=== PATIENT | female | born 1965 | race African-American/Black ===

== ENCOUNTER → 2017-12-27 | Outpatient (CLI) | payer OTHER ==
[~2017-12-27] VITALS: Ht 160 cm; Wt 79.4 kg
[~2017-12-27] MED LIST: ACETAMINOPHEN650 M5 OR; BACLOFEN 10MG T10 MG PO; CALCIUM 500 +1 EAC5 PO; COLACE100 MG OR; COPAXONE20 M1 SQ; CRANBERRY200 MG PO; DOCUSATE SODIU100 MG PO; FAMOTIDINE20 MG OR; GILENYA0.5 MG PO; IRON325 PO; LORTAB 5 MG/5001 TA1 OR; LORTAB 5 MG/5001 TA1 PO; MAGOX 400400 MG PO; METHYLIN 10 MG10 MG PO; METHYLPHENIDATE10 M7 PO; MOBIC15 MG PO; NEURONTIN 300300 M1 PO; NEURONTIN600 MG PO; NORCO 7.5-3251 EACH PO; NORVASC5 MG PO; OXYBUTYNIN 5 MG5 M1 PO; PREDNISONE 10 M10 MG PO; PREDNISONE 20 M20 M1 PO; PREDNISONE 5 MG5 M1 PO; SENNA OR; VITAMIN B-12500 MCG PO; VITAMIN D1000 UNI1 OR; VITAMIN D31000 UNIT PO; ZINC30 M1 PO
--- NOTE | ~2017-12-27 | P ---
[facility] [place] [address] PROCEDURE REPORT Name: TONEYCHERRI Room #: REG [facility] Cesar#: [id number] Admission: 12/27/17 Attend Phys: Hubert Bethea Discharge: Date of : 67 Report #: [id number] THIS REPORT FOR: //name// CC: Hubert Smith MD DATE OF SERVICE: 12/27/2017 PROCEDURE PERFORMED: Colonoscopy with biopsies. HISTORY OF PRESENT ILLNESS: The patient is a 52-year-old female with a recent Cologuard test that was positive. She denies any symptoms. She denies any blood in her stools. No previous history of colonoscopy, no family history of colon cancer. DESCRIPTION OF PROCEDURE: The risks and benefits of the procedure were explained to the patient, those risks including but not limited to bleeding, perforation, the risk of sedation. She understood these risks and gave informed consent. Sedation was given using propofol per anesthesia. Next, a digital rectal exam was initially performed, which was normal. Next, using a standard Olympus colonoscope, the scope was placed in the patient's anus and advanced under direct vision to the cecum. The overall prep was good. The cecum and ileocecal valve were normal in appearance. Terminal ileum was intubated and normal. In the proximal ascending colon, 2 small areas of colitis were noted. These were only approximately 5 mm in size. Biopsies were obtained. No evidence of bleeding, otherwise normal ascending colon. The transverse, descending and sigmoid colon were normal. The rectal mucosa was normal. On retroflexion, small nonbleeding internal hemorrhoids were noted. The scope was then withdrawn and the procedure terminated. The patient tolerated the procedure well. IMPRESSION: 1. Two small areas of inflammation/colitis in the ascending colon. Biopsies obtained. This may be secondary to NSAIDs or other etiologies. 2. Small internal hemorrhoids. 3. Otherwise, normal colonoscopy. RECOMMENDATIONS: Await biopsy results. [address] [address] PROCEDURE REPORT Name: ZIEGLERCHERRI DENNISON Room #: REG Mary Guerrero#: [id number] Admission: 12/27/17 Attend Phys: Hubert Bethea Discharge: Date of : 67 Report #: [id number] Thank you for allowing me to participate in her care. <ELECTRONICALLY SIGNED> By: Hubert Valentine MD 01/01/18 0903 1028 1819 Hubert Valentine MD /nt
--- NOTE | ~2017-12-27 | PATH ---
[facility] [address] [place] [address] PATHOLOGY RPT PROCEDURE Name: ANASTASIA MARCHLINDA Jauregui Room #: REG [facility] Celi.#: [id number] Admission: 12/27/17 Date of : 67 Discharge: Report #: [id number] Path Case #: [id number] [facility] Accession Number: [id number] . 01 Material submitted: . BX OF COLITIS, ASCENDING COLON . 01 Clinician provided ICD-10: Z12.11 . 01 Clinical history: . Screening, colitis . 02 Diagnosis: Large intestinal mucosa, colitis ascending colon, endoscopic biopsy: - Mild active colitis. - Negative for dysplasia or malignancy. [facility]/12/28/2017 . 02 Comment: Sections of the colonic mucosa designated "colitis-ascending colon" show focal cryptitis, and a moderately cellular lamina propria composed predominantly of lymphocytes and plasma cells and occasional eosinophils. Surface ulceration is not identified. There are no crypt abscesses, granulomas or viral inclusions. The process affects all the fragments with a similar intensity. Given the description, the differential diagnosis includes acute colitis of self-limited etiology, infectious-type of etiology, early inflammatory bowel disease, acute diverticulitis, as well as medication induced colitis. Please correlate with clinical as well as endoscopic findings. (IUV:pit 12/28/2017) . 02 Electronically signed: . Oksana Livingston MD, Pathologist NPI- [id number] . 01 Gross description: . The specimen is received in formalin, labeled "MarchCherri, BX of colitis-ascending colon", are several irregular fragments of melgar soft tissues measuring 0.7 x 0.3 x 0.1 cm in aggregate, entirely submitted in A1. (SWS; 12/27/2017) [facility] . 02 Pathologist provided ICD-10: K52.9 . [address] [address] PATHOLOGY RPT PROCEDURE Name: CHERRI MARCH Room #: REG CLI Tiara#: [id number] Admission: 12/27/17 Date of : 67 Discharge: Report #: [id number] Path Case #: [id number] [facility] . [id number] Specimen Comment: A courtesy copy of this report has been sent to Specimen Comment: [phone], . Specimen Comment: Report sent to / DR BOYER Performed at: [id number] [facility] [address], [place], [place] [id number] MD Cheo Junior MD Phone: [phone] Performed at: [address] [id number] MD Oksana Livingston MD Phone: [phone]
== END | disposition home or self-care (01) ==
LOC: GI 08:52
DX: K52.9 Noninfective gastroenteritis and colitis, unspecified (principal); K64.8 Other hemorrhoids; I10 Essential (primary) hypertension; G35 Multiple sclerosis; Z98.890 Other specified postprocedural states; Z79.899 Other long term (current) drug therapy; Z79.891 Long term (current) use of opiate analgesic
CPT/HCPCS: 62110; 62900

== ENCOUNTER 2018-09-22 15:00 | Inpatient (IN) | payer OTHER ==
[~2018-09-22] VITALS: Ht 152.4 cm; Wt 67.6 kg
--- NOTE | ~2018-09-22 | H ---
[facility] [place] [address] HISTORY AND PHYSICAL Name: CHERRI ZIEGLER Room #: 170-8 ADM IN M.R.#: [id number] Admission: 09/22/18 ������������������ Attend Phys: Cornelio Cardona MD Discharge: ������������������ Date of : 67 Report #: [id number] THIS REPORT FOR: //name// CC: Cornelio Smith DATE OF SERVICE: 09/22/2018 REASON FOR PRESENTATION: Bilateral lower extremity weakness. HISTORY OF PRESENT ILLNESS: A 53-year-old with past medical history of multiple sclerosis diagnosed way back in 1989. This was after she had some falls and an MRI confirmed the presence of a demyelinating process. The patient has been going to a neurologist. Her disease was described as waxing and waning with some flares up. Currently, she is maintained on Gilenya 0.5 mg every other day. She visits with her urologist every 6 months. Ever since August, the patient has not been able to do her usual activities. She usually utilizes a walker, but she has not been able to do so because of weakness in both lower extremities. She denies any fever or chills. She has some urinary incontinence, but her urinary habits have not changed. She does not have any bowel issues; however, she utilizes laxatives and stool softeners because of constipation. She denies any numbness in any part of her body. Because of the worsening of her symptoms and couple of falls, she decided to present for further evaluation and management as her is not able to provide her with the care she needs. PAST MEDICAL HISTORY: 1. Multiple sclerosis. 2. Hypertension. 3. Some psychiatric issues in the past including an adjustment disorder, cognitive disorders, attention deficit per a previous note back in 2010. 4. Hyperlipidemia. SOCIAL HISTORY: She lives with her . No drug or alcohol abuse. She used to work for a [employer] company before her disability with multiple sclerosis. ALLERGIES: None. FAMILY HISTORY: Her mom has hypertension and preeclampsia, otherwise negative. REVIEW OF SYSTEMS: GENERAL: No fever or chills. CARDIOVASCULAR: No chest pain or palpitation. PULMONARY: No cough or hemoptysis. GASTROINTESTINAL: No nausea or vomiting. [facility] [address] [place] [address] HISTORY AND PHYSICAL Name: CHERRI ZIEGLER Room #: 170-8 ADM IN ..#: [id number] Admission: 09/22/18 ������������������ Attend Phys: Cornelio Cardona MD Discharge: ������������������ Date of : 67 Report #: [id number] GENITOURINARY: Occasional incontinence, but no dysuria. NEUROLOGICAL: As per the history of present illness. SKIN: Seborrheic rash on her face. MEDICATIONS: 1. Docusate. 2. Baclofen. 3. Meloxicam. 4. Cranberry. 5. Vitamin D3. 6. Gabapentin. 7. Gilenya. 6. Amlodipine. 7. Oxybutynin. 8. Zinc. PHYSICAL EXAMINATION: VITAL SIGNS: Blood pressure is 134/86, temperature is 36.8, pulse rate is 84, respiratory rate is 17. GENERAL: No acute distress. HEAD AND NECK: There is seborrheic rash all over her face. LUNGS: Clear to auscultation bilaterally with no wheezing or rhonchi. CARDIOVASCULAR: Regular with no rub detected. No murmurs. ABDOMEN: Soft, nontender with no hepatosplenomegaly, no guarding, no rigidity. EXTREMITIES: Lower extremities +1 edema. No clubbing or cyanosis. NEUROLOGIC: She is alert, oriented. No gross cranial nerve deficit. There is 3/5 power in both lower extremities. This is her baseline per the family. LABORATORY DATA: Laboratory values reviewed. Hemoglobin is 9.5. Chemistry showed a sodium of 141, potassium of 4, chloride of 106. Mildly elevated AST at 63. CPK was mildly elevated at 490. C-reactive protein is elevated at 14.2. ASSESSMENT, IMPRESSION, AND PLAN: 1. Multiple sclerosis with an acute decompensation and flareup. 2. Apparent urinary tract infection. 3. Hypertension. 4. Admission. 5. Urine culture obtained. 6. It is likely that her acute decompensation is due to urinary tract infection. We will resume her usual multiple sclerosis related medications. 7. Ask Neurology to evaluate. 8. Will need Physical therapy and occupational therapy. [address] [address] HISTORY AND PHYSICAL Name: CHERRI ZIEGLER Room #: 170-8 ADM IN M.R.#: [id number] Admission: 09/22/18 ������������������ Attend Phys: Cornelio Cardona MD Discharge: ������������������ Date of : 67 Report #: [id number]. The patient is in need for home assistance and this will need to be arranged with our social sciences chair. ��������������������������������������������� ���������������������������������������� By: ��������������������������������������������� 1738 1810 Cornelio Cardona MD /nt
--- NOTE | ~2018-09-22 | HC ---
[facility] [place] [address] CONSULTATION Name: TONEYCHERRI Juventino Room #: 460-P ADM IN M.R.#: [id number] Admission: 09/22/18 ������������������ Attend Phys: Cornelio Cardona MD Discharge: ������������������ Date of : 67 Report #: [id number] THIS REPORT FOR: //name// CC: Cornelio Smith DATE OF SERVICE: 09/25/2018 HISTORY OF PRESENT ILLNESS: The patient is a 53-year-old -Mosotho female with a history of multiple sclerosis since , premorbid quad cane ambulator, occasional walker usage, admitted with worsening bilateral lower extremity weakness, increasing falls. is unable to provide the care she needs at this time. She was thought to have either an acute exacerbation or likely urinary tract infection. MRI did not show any active lesions and she was thought to have probable causation by the urinary tract infection. She has an indwelling Hutchinson catheter and has been on Rocephin pending cultures. MRI did show extensive MS in her brain, although no acute lesions and the steroids have been held off by Neurology at this time. PAST MEDICAL HISTORY: Her prior medical history includes the history of multiple sclerosis. She has a prior history of urinary urgency. There is note to some psychiatric issues in the past including an adjustment disorder, cognitive disorder, attention deficit and hyperlipidemia is noted. MEDICATIONS: Please see the full medication listing. This includes vitamins, herbals, and supplements. ALLERGIES: No known drug allergies. FAMILY HISTORY: Noncontributory. SOCIAL HISTORY: Lives with her as noted above. Their house is ramped. No steps. 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 The patient's mother lives 5 minutes away and is closely involved. No history of drug or alcohol abuse. She used to work for a [employer] company before her disability. REVIEW OF SYSTEMS: No current complaints of chest pain, shortness of breath or abdominal discomfort. PHYSICAL EXAMINATION: GENERAL: A 53-year-old slender -Mosotho female, in no obvious distress. She is alert, pleasant. VITAL SIGNS: Last recorded temperature is a 100, pulse 100, respirations 18, blood pressure 144/93. HEENT: Appeared to be benign. EOMs some lateral nystagmus. Facies appeared symmetric. NEUROLOGIC: She is able to discuss her history, although was a bit tangential. [facility] [address] [place] [address] CONSULTATION Name: CEHRRI ZIEGLER Room #: 460-P [facility] IN M.R.#: [id number] Admission: 09/22/18 ������������������ Attend Phys: Cornelio Cardona MD Discharge: ������������������ Date of : 67 Report #: [id number] Upper extremities reveal decreased coordination, especially deddso-[id number]-viak, little worse in the left. Strength is probably a grade 4-/5. EXTREMITIES: Lower extremities: She has better movement of that right lower extremity with strength probably grade 4-, left lower extremity strength is only a grade 3. She does have decreased coordination. Tone revealed DTRs basically 0 at the knees and there is no clonus at the ankles. Functionally, she has been mod assist with sit to stand. Gait was 25 feet mod assist with a front-wheeled walker with definite balance concerns. She does have some ataxia. ASSESSMENT: A 53-year-old -Mosoth[place] female following problem list: 1. Extensive multiple sclerosis with bilateral lower extremity weakness, gait instability and ataxia. 2. Increased falls with increased lower extremity weakness. 3. Urinary tract infection and has been receiving Rocephin. 4. Hypertension. 5. Functional mobility and ADL deficits. PLAN: I agree patient would benefit from inpatient rehabilitation to maximize her functional independence, so she can return back to the home setting with her and mother are involved. Insurance precertification issues to be checked regarding an acute inpatient rehabilitation stay. ��������������������������������������������� ���������������������������������������� By: ��������������������������������������������� 1036 1811 Tylor Vergara MD /nt
[2018-09-22 15:00] VITALS: BP 134/86
[2018-09-22 15:50] LABS: BASOPHILS 0.2 % (0.0-2.0); EOSINOPHILS 0.6 % (0.0-3.0); HEMATOCRIT 30.2 % (37.0-47.0); HEMOGLOBIN 9.5 gm/dL (12.0-15.0); LYMPHOCYTES 2.2 % (24.0-44.0); MCH 27.3 pg (26.0-34.0); MCHC 31.4 g/dL (28.0-37.0); MCV 86.9 fL (80.0-100.0); MONOCYTES 8.3 % (1.0-8.0); PLATELET COUNT 333 thou/uL (150-400); POLYS 88.7 % (36.0-66.0); RBC 3.47 mil/uL (4.20-5.00); RDW 19.2 % (10.5-14.5); WBC 7.9 thou/uL (4.0-11.0)
[2018-09-22 15:56] LABS: URINE BLOOD NEGATIVE (Negative); URINE CLARITY CLEAR; URINE COLOR YELLOW; URINE GLUCOSE-RANDOM* NEGATIVE (Negative); URINE KETONES 3+ (Negative); URINE LEUKOCYTES 2+ (Negative); URINE NITRITE NEGATIVE (Negative); URINE PROTEIN (DIPSTICK) 1+ (Negative)
[2018-09-22 15:58] LABS: ICTOTEST (BILI CONFIRMATORY) Negative (Negative); URINE BILIRUBIN NEGATIVE (Negative)
[2018-09-22 15:58] LABS: ANION GAP 14 mmol/L (7-16); BUN 8 mg/dL (7-18); CALCIUM 9.6 mg/dL (8.5-10.1); CHLORIDE 106 mmol/L (98-107); CO2 21 mmol/L (21-32); CREATININE 0.8 mg/dL (0.6-1.0); GLUCOSE 100 mg/dL (74-106); SODIUM 141 mmol/L (136-145)
[2018-09-22 16:05] LABS: CASTS None Seen /LPF (None Seen); SQUAMOUS 4-10 Moderate /LPF (0-3); URINE RBC 0-2 Rare /HPF (0-2)
[2018-09-22 16:06] LABS: AMORPHOUS PHOSPHATES Many /LPF (None Seen); WBC CLUMPS Few (None Seen)
[2018-09-22 16:09] LABS: ALBUMIN 3.8 g/dL (3.4-5.0); LIPASE 99 U/L (73-393); SGOT 63 U/L (15-37); SGPT 19 U/L (30-65); TOTAL BILIRUBIN 0.7 mg/dL (<0.1-1.0); TOTAL PROTEIN 7.8 g/dL (6.4-8.2); TROPONIN-I <0.06 ng/mL (<0.06)
[2018-09-22 18:00] VITALS: BP 138/77
[2018-09-22 18:14] VITALS: BP 138/87
[2018-09-22] MEDS ORDERED: GILENYA0.5 MG PO (18:20)
[2018-09-22 20:17] VITALS: BP 142/87
[2018-09-23 04:40] VITALS: BP 141/85
[2018-09-23 05:52] LABS: HEMATOCRIT 29.4 % (37.0-47.0); HEMOGLOBIN 9.5 gm/dL (12.0-15.0); MCH 27.3 pg (26.0-34.0); MCHC 32.1 g/dL (28.0-37.0); MCV 85.1 fL (80.0-100.0); RBC 3.46 mil/uL (4.20-5.00); RDW 18.9 % (10.5-14.5); WBC 5.7 thou/uL (4.0-11.0)
[2018-09-23 06:34] LABS: ALBUMIN 3.7 g/dL (3.4-5.0); CALCIUM 8.9 mg/dL (8.5-10.1); CREATININE 0.8 mg/dL (0.6-1.0); POTASSIUM 3.6 mmol/L (3.5-5.1); TOTAL BILIRUBIN 0.7 mg/dL (<0.1-1.0); TOTAL PROTEIN 7.6 g/dL (6.4-8.2)
[2018-09-23 09:17] VITALS: BP 138/90
--- NOTE | 2018-09-23 13:48 | EKG ---
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 : 1965 Requested By: Cinda Hussein Order Number: [id number] MD: Marino Saldana Measurements Intervals [place] Rate: 76 P: 65 MT: 160 QRS: 28 QRSD: 86 T: 27 QT: 378 QTc: 426 Interpretive Statements Sinus rhythm Normal tracing Compared to ECG 07/28/2010 13:23:49 No significant change was found Electronically Signed On 09-23-2018 13:48:42 CDT by Marino Saldana [email or web address] ��������������������������������������������� <ELECTRONICALLY SIGNED> ���������������������������������������� By: Marino Saldana MD, [facility] ��������������������������������������������� 09/23/18 1348 1600 1600 Marino Saldana MD, [facility] /EPI
--- NOTE | 2018-09-23 15:19 | NUR ---
PT STABLE THROUGHOUT SHIFT. PT VERY PLEASANT AND COOPERATIVE WITH POC. NO C/O PAIN, SOA OR N/V. FALLS PRECATIONS IN PLACE, SKIN INTACT. PT RESTING COMFORTABLY.
[2018-09-23 19:24] VITALS: BP 115/65
--- NOTE | 2018-09-24 03:24 | NUR ---
ASSUMED CARE AROUND 1900. AXOX4. NO S/S ACUTE DISTREDD NOTED OR REPORTED AT THIS TIME. WILL CONT TO MOTNITOR FOR ANY CHANGES IN CONDITION.
[2018-09-24 03:25] VITALS: BP 119/72
[2018-09-24 08:00] VITALS: BP 142/65
--- NOTE | 2018-09-24 14:46 | NUR ---
PT ADMITTED RELATED TO MS FLARE UTI. CM REVIEWED CHART AND SPOKE WITH CARE TEAM. CM MET WITH PT AT BEDSIDE THIS DAY. PT INDICATED SHE LIVES IN A HOUSE WITH HER SPOUSE WITH A RAMP TO ENTER THROUG HOUSE IN THE BACK. PT INDICATED NO STEPS INSIDE. PT INDICATED SHE HAS A CANE , 4WW, SHOWER CHAIR, AND GAIT BELT FOR USE AT HOME. PT INDICATED NO PREVIOUS HH SERVICES. PT INDICATED SHE HOPES TO RETURN HOME ONCE MEDCIALLY STABLE. CM TO FOLLOW INDICATED WITH DC PLANNING.
[2018-09-24 15:00] VITALS: BP 124/88
--- NOTE | 2018-09-24 17:07 | NUR ---
ASSUMED CARE AT 0700, SHIFT ASSESSMENT DONE, MEDS GIVEN, VSS. DENIES ANY PAIN, NAUSEA, VOMITING. WENT FOR MRI THIS AFTERNOON. WORKED WITH PHYSICAL THERAPHY, WAS ABLE TO COME OUT OF THE ROOM AND WALK IN THE [facility] FOR A SHORT DISTANCE. PT INDICATED POSSIBLE REHAB CONSULT. WILL CONTINUE TO ASSESS AND ASSIST WITH ADLs NEEDED.
[2018-09-24 19:28] VITALS: BP 102/82
[2018-09-25 03:29] VITALS: BP 129/86
--- NOTE | 2018-09-25 04:07 | NUR ---
ASSUMED CARE OF PT @1900 PT A7OX4 LAYING IN BED. NO C/O NAUSEA, VOMITING. POC DONE. EVENING MEDS GIVEN AND PT YUNIER IT WELL. FOLLEY BAG INTACT. BED IN LOW POSITION AND FALL PREC IN PLACE WILL CONTINUE TO MONITOR
[2018-09-25 05:24] LABS: HEMATOCRIT 30.2 % (37.0-47.0); HEMOGLOBIN 9.7 gm/dL (12.0-15.0); MCH 26.9 pg (26.0-34.0); MCHC 32.1 g/dL (28.0-37.0); MCV 83.8 fL (80.0-100.0); RBC 3.61 mil/uL (4.20-5.00); RDW 18.2 % (10.5-14.5); WBC 14.6 thou/uL (4.0-11.0)
[2018-09-25 05:32] LABS: CALCIUM 9.1 mg/dL (8.5-10.1); CREATININE 0.9 mg/dL (0.6-1.0); POTASSIUM 3.5 mmol/L (3.5-5.1)
[2018-09-25 07:10] VITALS: BP 144/93
--- NOTE | 2018-09-25 12:40 | NUR ---
[facility] ASSESSED AND INDICATED THAT PT WOULD BE A GOOD CANDADATE FOR ACUTE REHAB. THEY ARE SUBMITTING FOR AUTH FROM PT'S INSURANCE. CM TO FOLLOW INDICATED WITH DC PLANNING.
[2018-09-25 13:25] VITALS: BP 114/70
--- NOTE | 2018-09-25 19:36 | NUR ---
ASSUMED CARE AT 0700. PT A&OX4. PT CAN BE CONFUSED AT TIMES BUT DOES ORIENT VERY EASILY. PT GOT UP TO CHAIR AND TO BED THIS SHIFT. LIDOCAINE PATCH APPLIED TO R LOWER BACK ORDERED. PT HAD MANY VISITORS THIS AFTERNOON. PT DENIES PAIN AT THIS TIME. FALL PRECAUTIONS IN PLACE.
[2018-09-25 20:06] VITALS: BP 138/87
--- NOTE | 2018-09-26 04:54 | NUR ---
Assumed pt care at 1900. Pt A/OX4 with periods of forgetfulness noted. VSS.Denied pain on assessment. Hutchinson patent to DD with yellow urine. No c/o N/V during shift. Fall precautions implemented and hourly rounding done per protoctol. Resting quietly at this time with no distress noted,will continue to monitor pt.
[2018-09-26 07:18] VITALS: BP 112/78
[2018-09-26] MEDS ORDERED: CIPRO250 M1 PO (08:19)
--- NOTE | 2018-09-26 09:15 | NUR ---
PT VERY TALKATIVE WITH STAFF. PT LUNGS CLEAR, HYPOACTIVE BS. PT UP WITH X1 ASSIST WITH WALKER. PT HAS GAIT BELT. PT WEARS HATS OR WIGS DUE TO ALPECIA. PT STATED SHE HAS SOME NUMBNESS TO LEGS AND FEET BILATERALY. PT STATED SYMPTOMS COME AND GO. PT ON ROOM AIR.
--- NOTE | 2018-09-26 12:03 | NUR ---
[facility] INDICATED THAT PT WOULD BE A GOOD CANDIDATE FOR ACUTE REHAB AND THEY INDICATED THEY SUBMITTED FOR AUTH. THEY INFROMED CM THIS AM THAT THEY DON'T HAVE ANY MORE BEDS AT THIS TIME AND RECOMMEDED THAT CM TRY ANOTHER ACUTE REHAB. CM SPOKE WITH PT ABOUT [facility] AND PT ASKED THAT REFERRAL BE SENT TO [facility]. CM TO FOLLOW INDICATED WITH DC PLANNING.
--- NOTE | 2018-09-26 12:06 | NUR ---
DISCHARGE PLANNING. ANTICIPATED DISCHARGE TODAY. POST ACUTE CARE RECOMMENDED AT DISCHARGE. REFERRAL FAXED TO JULIO CESAR, [facility], FOR POST ACUTE CARE NEED. JULIO CESAR TO REVIEW AND NOTIFY CM.
[2018-09-26 14:08] VITALS: BP 111/71
--- NOTE | 2018-09-26 16:20 | NUR ---
D/C [facility]ENTIN CATH AT THIS TIME PER PROTOCOL. PT HAS 500ML OF CLEAR YELLOW URINE IN BAG.
[2018-09-26 20:07] VITALS: BP 124/83
--- NOTE | 2018-09-27 04:19 | NUR ---
ASSUMED CARE AROUND 1900. AXOX4. UPON ASSESSMENT, C/O SEVERE CONSTIPATION THAT PT IS UNABLE TO EXPEL. 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 EXTRA LARGE BM, SOFT AND BROWN. NO S/S ACUTE DISTRESS NOTED OR REPORTED AT THIS TIME. WILL CONT TO MOTNITOR FOR ANY CHANGES IN CONDITION.
[2018-09-27 08:16] VITALS: BP 107/76
--- NOTE | 2018-09-27 11:00 | NUR ---
ASSUMED CARE 0700. ALERT X3, ABLE TO MAKE NEEDS KNOWN. PAIN MANAGED WITH MEDICAITONS. UP WITH ASSISTANCE X1 WITH WALKER AND GAIT BELT. PLANS TO DC HOME WITH HOME HEALTH TODAY. FALL PRECAUTIONS IN PLACE WITH CALL LIGHT IN REACH.
[2018-09-27 11:09] VITALS: BP 107/76
[2018-09-27 13:14] VITALS: BP 107/76
--- NOTE | 2018-09-27 14:22 | NUR ---
AUTHORIZATION FOR ACUTE REHAB STAY REQUESTED FROM PATIENT'S INSURANCE [employer]. CALL RECEIVED THIS AM FROM [employer] THAT AUTHORIZATION HAD BEEN DENIED. PEER TO PEER CAN BE SCHEDULED BY CALLING . PEER TO PEER MUST BE REQUESTED BY OCTOBER 01, 2018 AT 11:00. REFERENCE NUMBER IS [id number].
--- NOTE | 2018-09-27 15:40 | NUR ---
INSURANCE DENIED AUTH FOR ACUTE REHAB. CARE TEAM INDICATED THAT PT IS BACK AT [facility] AND THAT SHE CAN DC HOME WITH HH SERVICES. PT INDICATED SHE DIDN'T HAVE A PREFERENCE IN PROVIDERS. REFERRAL WAS SENT TO [facility] AND THEY ARE ABLE ACCEPT PT. PT HAS ALL RECOMMENDED DME. PT IS TO HAVE PT, OT, AND HH AID. NO OTHER CM INTERVENTION INDICATED AT THIS TIME. CASE CLOSED.
== END 2018-09-27 16:15 | disposition home health service (06) | DRG 59 ==
LOC: ER 15:00 → 4W 17:16 → EROBS 17:16 → 4W 18:46
PROVIDERS: Hospitalist; Physician Assistant; ADMIT Hospitalist
DX: G35 Multiple sclerosis (principal); N39.0 Urinary tract infection, site not specified; E78.5 Hyperlipidemia, unspecified; M50.221 Other cervical disc displacement at C4-C5 level; I10 Essential (primary) hypertension; Z87.81 Personal history of (healed) traumatic fracture; Z82.49 Family history of ischemic heart disease and other diseases of the circulatory system; Z87.59 Personal history of other complications of pregnancy, childbirth and the puerperium
CPT/HCPCS: 10040

== ENCOUNTER 2018-09-28 09:39 | Emergency (ER) | payer OTHER ==
[~2018-09-28] VITALS: Ht 162.6 cm; Wt 59.0 kg
[~2018-09-28 09:39] MED LIST changes: +CIPRO250 M1 PO
[2018-09-28 13:07] VITALS: BP 130/73
== END 2018-09-28 13:13 | disposition home or self-care (01) ==
LOC: ER 09:39
DX: S80.02XA Contusion of left knee, initial encounter (principal); M25.551 Pain in right hip; G35 Multiple sclerosis; R53.1 Weakness; I10 Essential (primary) hypertension; W01.0XXA Fall on same level from slipping, tripping and stumbling without subsequent striking against object, initial encounter; Y92.89 Other specified places as the place of occurrence of the external cause; Y93.89 Activity, other specified; Y99.8 Other external cause status

== ENCOUNTER 2019-10-28 09:52 | Emergency (ER) | payer OTHER ==
[~2019-10-28] VITALS: Ht 160 cm; Wt 80.7 kg
--- NOTE | ~2019-10-28 | EMS ---
[place] [id number] EMS Patient Care Report Name: CHERRI ZIEGLER Room #: REG Cesar#: [id number] Admission: 10/28/19 Attend Phys: Discharge: Date of : 67 Report #: [id number] THIS REPORT FOR: //name// Report Transmitted: 10/28/2019 13:22 EMS Care Summary [place], [place]/[facility] Incident [id number] @ 10/28/2019 09:19 [address]ident [address] [place] [address] Patient CHERRI ZIEGLER Female, 54 Years 1965 Patient Address [address] [place] [address] Patient History Hypertension (HTN),Multiple Sclerosis,Back Pain (Chronic), Patient Allergies No known allergies, Patient Medications Vitamin D, Baclofen, Gabapentin, Meloxicam, Chief Complaint FALL Disposition Transported No Lights/[place] Dispatch Reason Sick Person Transported To [facility] Narrative DISPATCHED EMERGENCY ON A SICK. [employer] [address] ON SCENE UPON ARRIVAL. 54 Y/O FEMALE BEING CARRIED OUT OF HOUSE BY [employer] WITHOUT INCIDENT. APPEARS IN NO IMMEDIATE DISTRESS. PT IS COVERED WITH A SHEET AND ADVISED BY [employer] THAT PT IS COVERED IN FECES. GCS 15 AND A/OX4. [place] [address] EMS Patient Care Report Name: CHERRI ZIEGLER Room #: REG [facility].#: [id number] Admission: 10/28/19 Attend Phys: Discharge: Date of : 67 Report #: [id number] FOR TX AND TRANSPORTATION. PT STATES "I GOT UP AROUND 9PM TO USE THE RESTROOM AND TRIED TO SIT DOWN TO USE THE RESTROOM AND FELL." DENIES ANY LOSS OF CONSCIOUSNESS. PT STATES HER TRIED TO HELP HER UP BUT SHE TOLD HIM NOT TO TOUCH HER AND SO SHE LAID ON THE BATHROOM FLOOR ALL NIGHT. CHIEF COMPLAINT OF LOWER BACK PAIN AT 10. PT HAS HISTORY OF CHRONIC LOWER BACK PAIN. DENIES ANY OTHER MEDICAL COMPLAINTS. PT STATES SHE WASN'T ABLE TO GET HERSELF UP DUE TO HER MULTIPLE SCLEROSIS. DENIES TAKING ANY BLOOD THINNERS. MOVED WITHOUT INCIDENT TO AMBULANCE. C-COLLAR PLACED DUE TO UNCERTAINTY IF LOWER BACK PAIN IS CHRONIC OR NEW DUE TO FALL. V/S'S OBTAINED. TRANSPORTED TO [facility] PER PT REQUEST. REASSESSED ENROUTE. REMAINS GCS 15 AND ALERT. PAIN REMAINS UNCHANGED AT 10. V/S'S OBTAINED. REPORT CALLED TO HOSPITAL. MOVED WITHOUT INCIDENT TO ER HOSPITAL BED. PT CARE TRANSFERRED TO ED RN. Initial Vitals @09:41P: 109,R: 16,BP: 142/79,Pain: 1010,GCS: 15,SpO2: 99,Revised Trauma: 12, @09:34P: 108,R: 16,BP: 104/72,Pain: 1010,GCS: 15,SpO2: 98,Revised Trauma: 12, Assessments @09:35MENTAL:SKIN:HEENT:Eyes: Left Pupil: 4-mm,Eyes: Right Pupil: 4-mm,Head/Face: No Abnormalities,Neck/Airway: No Abnormalities,LUNG SOUNDS:General: No Abnormalities,ABDOMEN:General: No Abnormalities,PELVIS//GI:No Abnormalities,EXTREMITIES:Capillary Refill: Left Upper: < 2 Sec,Capillary Refill: Left Lower: < 2 Sec,Capillary Refill: Right Upper: < 2 Sec,Capillary Refill: Right Lower: < 2 Sec,Left Arm: No Abnormalities,Right Arm: No Abnormalities,Left Leg: No Abnormalities,Right Leg: No Abnormalities,PULSE:Radial: 2+ Normal,NEURO: Impression Injury Procedures @09:28ALS AssessmentResponse: UnchangedSucceeded@09:30Spinal Motion RestrictionResponse: UnchangedSucceeded@09:28StretcherResponse: Unchanged Timeline 09:17,Call Received 09:17,Dispatch Notified 09:19,Dispatched 09:21,En Route 09:25,On Scene 09:28,At Patient 09:28,ALS Assessment,Response: UnchangedSucceeded, 09:28,Stretcher,Response: Unchanged 09:30,Spinal Motion Restriction,Response: UnchangedSucceeded, 09:34,BP: 104/72 M,PULSE: 108,RR: 16 R,SPO2: 98 Ox,ETCO2: ,BG: ,PAIN: 10,GCS: 15, [facility] [address] [place] [address] EMS Patient Care Report Name: CHERRI ZIEGLER Room #: REG ROBBIE Guerrero#: [id number] Admission: 10/28/19 Attend Phys: Discharge: Date of : 67 Report #: [id number] 09:38,Depart Scene 09:41,BP: 142/79 M,PULSE: 109,RR: 16 R,SPO2: 99 Ox,ETCO2: ,BG: ,PAIN: 10,GCS: 15, 09:48,At Destination 10:04,Call Closed Disclaimer v1.1 Copyright 2020 [employer] This EMS Care Summary contains data elements from the applicable legal record (which may be displayed differently). It is designed to provide pertinent information for the following purposes: continuity of care, clinical quality, and state data reporting. The complete legal record is available to ED staff and administrators of the receiving hospital in [facility]'s Patient Tracker. All data is provided "as is."
[2019-10-28 11:54] LABS: URINE BILIRUBIN NEGATIVE (Negative); URINE BLOOD 1+ (Negative); URINE CLARITY CLOUDY; URINE COLOR YELLOW; URINE GLUCOSE-RANDOM* NEGATIVE (Negative); URINE KETONES TRACE (Negative); URINE LEUKOCYTES-REFLEX TRACE (Negative); URINE PROTEIN (DIPSTICK) 2+ (Negative); URINE SPECIFIC GRAVITY 1.015 (1.005-1.035)
[2019-10-28 11:55] LABS: URINE NITRITE-REFLEX POSITIVE (Negative)
[2019-10-28 12:49] LABS: ABSOLUTE NEUTROPHILS 8.4 thou/uL (1.4-8.2); BASOPHILS 0.2 % (0.0-2.0); HEMATOCRIT 31.7 % (37.0-47.0); HEMOGLOBIN 10.2 gm/dL (12.0-15.0); LYMPHOCYTES 1.1 % (24.0-44.0); MCH 26.8 pg (26.0-34.0); MCHC 32.2 g/dL (28.0-37.0); MCV 83.3 fL (80.0-100.0); PLATELET COUNT 243 thou/uL (150-400); POLYS 91.7 % (36.0-66.0); RDW 16.1 % (10.5-14.5); WBC 9.1 thou/uL (4.0-11.0)
[2019-10-28 12:57] LABS: CALCIUM 9.2 mg/dL (8.5-10.1); POTASSIUM 3.6 mmol/L (3.5-5.1)
[2019-10-28 13:04] LABS: ALBUMIN 3.2 g/dL (3.4-5.0); DIRECT BILIRUBIN 0.2 mg/dL (<0.1-0.2); TOTAL BILIRUBIN 0.7 mg/dL (0.2-1.0); TOTAL PROTEIN 7.3 g/dL (6.4-8.2)
[2019-10-28 13:46] LABS: AMORPHOUS PHOSPHATES Many /LPF (None Seen); TRIPLE PHOSPHATE CRYSTALS 4-10 Moderate /LPF (None Seen); URINE RBC 0-2 Rare /HPF (0-2)
[2019-10-28 13:47] LABS: BACTERIA-REFLEX 1-9 Few /HPF (None Seen); CASTS None Seen /LPF (None Seen); URINE WBC-REFLEX 0-5 Rare /HPF (0-5)
[2019-10-28 13:49] LABS: SQUAMOUS None Seen /LPF (0-3)
--- NOTE | 2019-10-28 16:02 | NUR ---
ATTEPMTED TO CALL PTS GUERRERO AT [phone]. [facility] [phone]
[2019-10-28 20:54] VITALS: BP 152/85
--- NOTE | 2019-10-28 20:54 | NUR ---
HANDOFF TOOL SENT TO FLOOR
[2019-10-29 01:25] VITALS: BP 148/88
== END 2019-10-29 01:38 | disposition short-term general hospital (02) ==
LOC: ER 09:52 → EROBS 18:49 → ER 18:49
PROVIDERS: Emergency Medicine
DX: N39.0 Urinary tract infection, site not specified (principal); R53.1 Weakness; R29.6 Repeated falls; M54.5 Low back pain; M25.562 Pain in left knee; I10 Essential (primary) hypertension; Z86.69 Personal history of other diseases of the nervous system and sense organs; Z20.828 Contact with and (suspected) exposure to other viral communicable diseases; Z79.899 Other long term (current) drug therapy; W18.39XA Other fall on same level, initial encounter; Y93.89 Activity, other specified; Y92.89 Other specified places as the place of occurrence of the external cause; Y99.8 Other external cause status

== ENCOUNTER → 2020-09-15 | Outpatient (CLI) | payer OTHER | LOC: RAD 12:01 | PROVIDERS: ATTEND Neuromusculoskeletal Medicine & OMM | DX: Z12.31 Encounter for screening mammogram for malignant neoplasm of breast (principal) ==